=== PATIENT | female | born 1980 | race Caucasian/White ===

== ENCOUNTER 2023-01-16 00:56 | Emergency (ER) | payer BC ==
[~2023-01-16] VITALS: Ht 180.3 cm; Wt 104.0 kg
[2023-01-16 01:11] VITALS: O2SAT 98
[2023-01-16] MEDS ORDERED: HYDROCODONE/ACETAMINOPHEN 10/325MG TABLET PO ONE (02:00)
[2023-01-16 03:30] VITALS: BP 135/53; PULSE 87; RESP 21; TEMP 98.2
[2023-01-16] MEDS ORDERED: HYDR-4001 MT (04:59)
[2023-01-16] MEDS ORDERED: IBUP-2029 MT (04:59)
== END 2023-01-16 06:53 | disposition home or self-care (01) ==
LOC: ER 00:56
DX: S82.892A Other fracture of left lower leg, initial encounter for closed fracture (principal); J45.909 Unspecified asthma, uncomplicated; Z98.890 Other specified postprocedural states; W18.39XA Other fall on same level, initial encounter; Y93.89 Activity, other specified; Y92.89 Other specified places as the place of occurrence of the external cause; Y99.8 Other external cause status
CPT/HCPCS: 73610; 73630; 99284